=== PATIENT | female | born 1950 | race Two or more races ===

== ENCOUNTER 2024-03-20 09:27 | Emergency (ER) | payer MEDICARE, MEDICAID, SELFPAY ==
[2024-03-20 09:39] VITALS: BP 150/85; PULSE 81; RESP 19; TEMP 37; O2SAT 95; BMI 27.1
--- NOTE | 2024-03-20 09:55 | XR_ITS ---
EXAMINATION: Ankle, left 3 views . Technique: Ankle AP, oblique, lateral 3 views Date and time of exam: March 20, 2024 at 1002 hours Indications: Left ankle swelling and pain beginning 3 days ago no trauma IMPRESSION: Moderate osteopenia Moderate narrowing tibiotalar joint 10 mm plantar 12 mm posterior bony calcaneal spurs Ossification in the plantar fascia IMPRESSION: Plantar posterior bony calcaneal spurs as above Ossification in the plantar fascia
--- NOTE | 2024-03-20 09:55 | XR_ITS ---
Examination: Duplex scan of the lower extremity, unilateral left complete Exam date and time: 03/20/2024 1102 hours INDICATIONS: Left leg pain beginning 3 days ago Technique: Duplex scan of the extremity veins using B-mode/grayscale imaging and Doppler spectral analysis and color flow Attention is directed to internal echogenicity, compression and augmentation involving these veins, color flow assessment, spectral analysis Findings: Major deep venous structures in the extremity demonstrate normal course and caliber. There is no evidence of deep vein thrombosis. Normal color flow and spectral analysis Impression: Negative for DVT..
--- NOTE | 2024-03-20 12:33 | EDNOTE_ITS ---
ED General RME/HPI General Chief complaint: Extremity Injury, Lower Stated complaint: BP HIGH 163/87, PAIN LLE UP TO KNEE Time Seen by Provider: 03/20/24 09:30 Arrival date/time: 03/20/24 09:27 73-year-old female presents the emergency department today stating her blood pressure was high and she was concerned perhaps that was causing an issue with her left foot patient reports no fever nausea or vomiting no weakness no headache Limitations: no limitations Related Data Home Medications ?Medication ?Instructions ?Recorded ?Confirmed lisinopril 20 mg tablet 20 mg PO BID 03/26/18 09/21/23 clonazepam 2 mg tablet 2 mg PO HS PRN Insomnia 01/01/23 09/21/23 fexofenadine-pseudoephedrine ER 1 tab PO QAM 01/01/23 09/21/23 180 mg-240 mg tablet,ext.release 24 hr Previous Rx's ?Medication ?Instructions ?Recorded docusate sodium 100 mg capsule 100 mg PO Q8HR PRN constipation 09/05/23 (Colace) #20 caps hydrocodone 5 mg-acetaminophen 325 1 tab PO Q8H PRN pain #20 tabs 09/05/23 mg tablet Allergies Allergy/AdvReac Type Severity Reaction Status Date / Time No Known Allergies Allergy Verified 03/20/24 12:51 Review of Systems Review of Systems Systems Reviewed: All systems reviewed, normal except as documented Constitutional Constitutional: Reports system reviewed and no additional complaints, except as documented, Denies fever(s) and Denies headache(s) Eyes Eyes: Reports system reviewed and no additional complaints, except as documented and Denies blurry vision ENT Ears, Nose, Mouth, and Throat: Reports system reviewed and no additional complaints, except as documented, Denies headache(s), Denies nasal congestion and Denies nasal discharge Cardiovascular Cardiovascular: Reports system reviewed and no additional complaints, except as documented, Denies chest pain and Denies dyspnea Respiratory Respiratory: Reports system reviewed and no additional complaints, except as documented, Denies chest congestion, Denies cough and Denies dyspnea Gastrointestinal Gastrointestinal: Reports system reviewed and no additional complaints, except as documented and Denies abdominal pain Musculoskeletal Musculoskeletal: Reports system reviewed and no additional complaints, except as documented, Reports arthralgias, Denies joint swelling, Denies numbness, Reports stiffness and Denies tingling Integumentary/Breasts Skin/Breast: Reports system reviewed and no additional complaints, except as documented and Denies rash Neurologic Neurologic: Reports system reviewed and no additional complaints, except as documented, Reports as per HPI, Denies headache(s), Denies numbness and Denies tingling Past Medical History Past Medical History NEUROLOGIC: Positive Neurological Disorders and Migraine; Negative Seizures CARDIAC: Positive Cardiac Disorders, Hypertension and Hypotension; Negative Congestive Heart Failure RESPIRATORY: Positive Pneumonia; Negative Chronic Obstructive Pulmonary Disease (COPD) or Asthma GASTROINTESTINAL: Positive Gastrointestinal Disorders, Diverticulitis and Ulcer GENITOURINARY: Positive Genitourinary Disorders (UTI'S); Negative Renal Disease MUSCULOSKELETAL: Positive Musculoskeletal Disorders (LEFT FOOT PAIN) ENDOCRINE: Negative Diabetes Mellitus Type 1 or Diabetes Mellitus Type 2 (PRE) HEMATOLOGIC: Negative Sickle Cell Disease PSYCHO/SOCIAL: Positive Depression and Anxiety OTHER HISTORY: Positive Chicken Pox, Measles and Mumps; Negative Blood Transfusions, Blood Transfusion Reaction, Anesthesia Reactions or Cancer Family History FAMILY HISTORY: Positive Family Cancer (FATHER - COLON CA); Negative Family Cardiac Disorders Social History SMOKING STATUS: Never smoker SUBSTANCE USE: does not use ED Exam General Limitations: Present no limitations General appearance: Present alert and in no apparent distress Head Head exam: Present atraumatic Eye Eye exam: Present normal appearance, PERRL and EOMI ENT ENT exam: Present normal exam, normal oropharynx and mucous membranes moist Neck Neck exam: Present normal inspection, full ROM and trachea midline Chest Chest inspection: Present normal inspection and symmetric chest wall rise Respiratory Respiratory exam: Present normal lung sounds bilaterally Cardiovascular Cardiovascular exam: Present regular rate, normal rhythm and normal heart sounds Abdominal Exam Abdominal exam: Present soft and normal bowel sounds Extremities Exam Extremities exam: Present normal inspection, full ROM, tenderness (Left ankle pain) and normal capillary refill; Absent pedal edema, joint swelling or calf tenderness Back Exam Back exam: Present normal inspection and full ROM Neurological Exam Neurological exam: Present alert, oriented X3 and CN II-XII intact Psychiatric Psychiatric exam: Present normal affect and normal mood Skin Skin exam: Present warm, dry, intact and normal color Course Quality Measures none Orders Category Date Time Status US venous doppler LE LT Stat Exams 03/20/24 09:55 Completed XR ankle comp LT min 3V Stat Exams 03/20/24 09:55 Completed Vital Signs Vital signs: Vital Signs Temperature 98.6 F 03/20/24 09:39 Pulse Rate 81 03/20/24 09:39 Respiratory Rate 19 11/18/24 09:39 Blood Pressure 150/85 H 03/20/24 09:39 Pulse Oximetry (%) 95 03/20/24 09:39 Oxygen Delivery Method Room Air 03/20/24 09:39 O2 saturation 95% room air within normal limits MDM Patient data External records reviewed:: [facility] previous records Clinical information provided by:: patient Social determinants that could affect healthcare access:: none Patient has the following chronic illnesses:: Hypertension How is presenting disease/condition affected by chronic disease/condition?: uneffected by Evaluation data The following diagnostics were reviewed and interpreted by me:: radiology exam (s) Lab and/or radiology exams considered but not ordered:: Radiology obtained Interpretation Summary: Reviewed by me Medications Medications considered but not ordered:: Given no meds Medication administrations:: Given no meds Consultations Consultation(s) initiated? (list below): No Diagnosis Differential Diagnosis ED Complaint MDM: Foot sprain, foot fracture, DVT Most likely diagnosis given after review of the tests above:: Foot sprain Admission Indicated Admission indicated?: not indicated Explain why admission is indicated or not indicated:: No criteria Admission Request Was there a request for admission?: No Disposition Plan Disposition Plan: Discharge Discharge Attestation Discharge Attestation: The patient and all family members were given an opportunity to ask questions and understood the discharge instructions. Discharge instructions specifically effects, indications for sooner follow up or return to the emergency department, and the expected course of current diagnosis. Patient condition: Stable Medical Decision Making MDM Narrative MDM Narrative: 73-year-old female presents the emergency department today stating her blood pressure was high and she was concerned perhaps that was causing an issue with her left foot patient reports no fever nausea or vomiting no weakness no headache On exam patient points to the medial aspect of the left foot and states there is some swelling I really do not appreciate any significant swelling of any kind no bruising no deformity no redness or warmth Patient discharged home in no distress to follow-up with primary care doctor in the next 24 to 48 hours and for any worsening symptoms to return to the ER immediately Differential Diagnosis Differential Diagnosis: Foot sprain, foot fracture, DVT Medical Records Medical records reviewed: Yes I reviewed the patient's medical records. Radiology Data Radiology results reviewed: Yes I reviewed the patient's radiology results. Discharge Plan Plan Patient Disposition: HOME (Self Care) Disposition Comment: Stable Prescriptions/Referrals Prescriptions/Med Rec: No Action lisinopril 20 mg Tablet 20 mg PO BID clonazepam 2 mg Tablet 2 mg PO HS PRN (Reason: Insomnia) Hold Instructions: Resume on 01/02/23. MAY RESUME IN 24 HOURS fexofenadine-pseudoephedrine 180-240 mg Tablet Extended Release 24 Hr 1 tab PO QAM hydrocodone-acetaminophen 5-325 mg tablet 1 tab PO Q8H MDD 3 tabs/day PRN (Reason: pain) Qty: 20 0RF docusate sodium [Colace] 100 mg capsule 100 mg PO Q8HR PRN (Reason: constipation) Qty: 20 0RF Rx Instructions: Please take Colace if you require taking the prescription pain medicines. Referrals: Araceli Tompkins FNP [Primary Care Provider] - In 1 week Problem List Clinical Impression: Ankle pain, left Patient/Caregiver Discharge Instructions Education Materials: Medicine for Pain Additional Instructions: Please follow up with your primary care doctor in the next 24-48hrs for any worsening symptoms return here immediately Print Language: Khmer Stand Alone Forms: Sandy Award Info., Patient Portal Info Letter MD Attestation Attestation The patient was seen by the midlevel practitioner. I, the co-signing physician, was present during the entire ER visit. While I did not physically examine the patient, I was available for consultation as needed.
== END 2024-03-20 12:55 | disposition home or self-care (01) ==
PROVIDERS: Emergency Provider Emergency Medicine; PCP Registered Nurse Community Health
DX: M25.572 Pain in left ankle and joints of left foot (principal); M79.605 Pain in left leg
CPT/HCPCS: 73610; 93971; 99284

== ENCOUNTER → 2024-03-27 | Outpatient (CLI) | payer MEDICARE, MEDICAID, SELFPAY ==
--- NOTE | 2024-03-27 12:30 | XR_ITS ---
Examination: Bone scan whole body, radioisotope Date and time of exam: March 27, 2024 1238 hours INDICATIONS: Brain MRI March 01, 2024 subtle abnormal enhancement in the right frontal bone inner table Technique: Study has been performed with intravenous administration of 24 mci 99M technetium MDP. Anterior, posterior whole body images are obtained. Images have been obtained including the lower extremities. Findings: No convincing focal abnormal osseous uptake in the cranial vault Subtle asymmetric uptake left anterior lower rib which may be secondary to rotation IMPRESSION: No convincing focal abnormal osseous uptake in the cranial vault Subtle uptake left lower anterior rib, recommend left rib series follow-up
== END | disposition home or self-care (01) ==
LOC: SNUC 08:18
PROVIDERS: PCP Registered Nurse Community Health; Referring Provider Specialist; Visit Provider Specialist
DX: R94.02 Abnormal brain scan (principal)
CPT/HCPCS: 78306; A9503

== ENCOUNTER → 2024-05-01 | Outpatient (CLI) | payer MEDICARE, MEDICAID, SELFPAY ==
--- NOTE | 2024-05-01 09:00 | XR_ITS ---
Examination: Bone densitometry Date and time of exam:May 01, 2024 0851 hours INDICATIONS: Menopause age 50, personal history osteopenia Technique: Lumbar spine and hip total bone mineralization values of an calculated. Peak reference and age match control results have been displayed. Findings: Lumbar spine total bone mineralization is0.850 gm/cm2. This is 1.8 standard deviations below peak reference. This is 0.5 standard deviations above age-matched controls. Hip total bone mineralization is 0.780 gm/cm2 This is 1.4 standard deviations below peak reference. This is 0.3 standard deviations above age-matched controls Impression: There is osteopenia based on lumbar spine measurements. There is osteopenia based on hip measurements Lumbar mineralization is increased 6.5% compared with February 23, 2017 Hip mineralization is increased 9.8% compared with February 23, 2017
== END | disposition home or self-care (01) ==
LOC: CDIM 08:36
PROVIDERS: Referring Provider Registered Nurse Community Health; Visit Provider Registered Nurse Community Health
DX: M85.89 Other specified disorders of bone density and structure, multiple sites (principal)
CPT/HCPCS: 77080

== ENCOUNTER → 2024-07-28 | Outpatient (CLI) | payer MEDICARE, MEDICAID, SELFPAY ==
--- NOTE | 2024-07-28 12:00 | XR_ITS ---
Examination: MRI cervical spine without intravenous contrast Date and time of exam: July 28, 2024 at 1233 hours INDICATIONS: Neck pain radiating to the back 3 years Technique: Multiple axial and sagittal sections of the cervical spine to been obtained. T2 weighted sagittal sections, TR 3, 270, TE 117 T1-weighted sagittal sections, TR 500, TE 11 T1-weighted axial sections, TR 607, TE 12, axial sections TR 18, TE 27 and T2 weighted transverse sections, TR 3920, TE 122. Findings: Adequate alignment cervical vertebral bodies No cervical fracture. Intact odontoid. Mild disc narrowing C3-C4, C4-C5, C5-C6 Diffuse cervical disc desiccation No localized enlargement cervical cord C2-C3 no disc protrusion C3-C4 3 mm left paracentral disc protrusion C4-C5 2 mm central subarticular osteophyte disc complex C5-C6 3 mm right paracentral disc bulge C6-C7 moderate bilateral neural foraminal stenosis C7-T1 no disc protrusion IMPRESSION: C3-C4 3 mm left paracentral disc protrusion C5-C6 3 mm right paracentral disc bulge C6-C7 moderate bilateral neural foraminal stenosis
== END | disposition home or self-care (01) ==
LOC: SMRI 12:03
PROVIDERS: PCP Registered Nurse Community Health; Referring Provider Physical Medicine & Rehabilitation Sports Medicine; Visit Provider Physical Medicine & Rehabilitation Sports Medicine
DX: M50.21 Other cervical disc displacement, high cervical region (principal); M48.02 Spinal stenosis, cervical region
CPT/HCPCS: 72141

== ENCOUNTER 2024-10-24 10:58 | Outpatient (AMB) | payer MEDICARE, MEDICAID, SELFPAY ==
--- NOTE | 2024-10-24 11:13 | GYNCLNT_ITS ---
Vital Signs 10/24/24 11:15 Height 1.55 m Height Method Stated Weight 68.209 kg Weight Measurement Method Standing Scale BMI 28.3 BP 119/67 Blood Pressure Source Automatic Cuff Blood Pressure Location Left Upper Arm Position Supine Respiration 18 Pulse 69 Pulse Source Monitor Temp 97.2 F Temp Source Oral Pulse Oximetry (%) 96 Oxygen Delivery Method Room Air Allergies/Home Meds Allergies & Medications Allergies No Known Allergies Allergy (Verified 10/24/24 11:16) Medication Reconciliation lisinopril 20 mg tablet 20 mg PO BID 03/26/18 [History Confirmed 10/24/24] clonazepam 2 mg tablet 2 mg PO HS PRN Insomnia 01/01/23 [History Confirmed 10/24/24] Held on 01/01/23. Instructions: Resume on 01/02/23. MAY RESUME IN 24 HOURS fexofenadine-pseudoephedrine ER 180 mg-240 mg tablet,ext.release 24 hr 1 tab PO QAM 01/01/23 [History Confirmed 10/24/24] docusate sodium 100 mg capsule (Colace) 100 mg PO Q8HR PRN constipation #20 caps 09/05/23 [Rx Confirmed 10/24/24] hydrocodone 5 mg-acetaminophen 325 mg tablet 1 tab PO Q8H PRN pain #20 tabs 09/05/23 [Rx Confirmed 10/24/24] Intake Visit Data Collection New Patient or Established: Established Patient (seen at [facility] within 3 years) Reason for Visit:: PROLAPSE Seen by Clinical Staff ONLY (RN/MA): No Senior Vice President And Chief Information Officer Required: No Do You Feel Safe at Home: Yes Authorities Contacted: N/A PCP or OBGYN visit in last 3 months: Yes Hx Now: No Are you currently on any form of Control: No Pain Present Currently: No Pain Scale Used: Em-Bains/Numerical Pain scale:: 0 Smoking Status Smoking Status: Never smoker Occupational Safety And Health Manager history Occupational Safety And Health Manager History Menstrual regularity: irregular Monthly: No Age at menarche: 16 Menopausal: Yes Currently sexually active: No If not currently sexually active, have you ever been sexually active: No CREDIT CONTROL OFFICER: Past Medical History Past Medical History: Yes Hx Neurological Disorders, Yes Hx Cardiac Disorders, Yes Hx Hypertension, No Hx Cancer, Yes Hx Gastrointestinal Disorders, No Hx Renal Disease, No Hx Diabetes Mellitus Type 1 and No Hx Diabetes Mellitus Type 2 (PRE) Questionnaires Covid-19 Vaccine Questionnaire Has patient been vacinated for Covid-19 Have you been vacinated for Covid-19: Yes PHQ-9 PHQ-2 Over the last 2 weeks, how often have you been bothered by any of the following problems? 1. Little interest or pleasure in doing things: not at all 2. Feeling down, depressed, or hopeless: not at all Total score: 0 PHQ-9 3. Trouble falling or staying asleep, or sleeping too much: Not at all 4. Feeling tired or having little energy: Not at all 5. Poor appetite or overeating: Not at all 6. Feeling bad about yourself - or that you are a failure or have let yourself or your family down: Not at all 7. Trouble concentrating on things, such as reading the newspaper or watching television: Not at all 8. Moving or speaking so slowly that other people could have noticed? - Or the opposite - being so fidgety or restless that you have been moving around a lot more than usual: not at all 9. Thoughts that you would be better off or of hurting yourself in some way: Not at all Total score: 0 If you checked off any problems, how difficult have these problems made it for you to do your work, take care of things at home, or get along with other people?: not difficult at all Source: Developed by Drs. Heath Berrios, Latonia Hammond, Andrés Bean and colleagues, with an educational jorge from [employer]. Depression screen completed yes Social History Living Situation History Marital Status: Lives With: Family Housing: House Tobacco History Smoking Status: Never smoker Second Hand Smoke Exposure: No Alcohol History Alcohol Intake: Never Domestic Abuse History Do You Feel Safe at Home: Yes History of Present Illness HPI Narrative Sulma Renae, a 73-year-old female, presents for evaluation of uterine prolapse and urinary incontinence. The patient reports experiencing urinary incontinence for approximately 5 years, with symptoms worsening after a fall 3 years ago. She describes leakage of urine upon standing after using the restroom and when sneezing. The patient's daughter, who is translating, also notes that the incontinence occurs while the patient is working. The patient's urinary symptoms have been constant for more than one year. She experiences urgency and difficulty holding urine, suggesting urge incontinence. The incontinence impacts her daily activities, particularly during work and when performing actions that increase intra-abdominal pressure, such as sneezing. Mrs. Renae has a significant obstetric history, having given to 14 children, all through normal vaginal deliveries. She also reports a history of gallbladder surgery in [place] approximately 33 years ago, which coincided with a . The patient is noted to be pre-diabetic, but does not have diabetes. Obstetric History - GTPAL: G14 T14 L14 - history: - 14 children, all delivered via normal vaginal births Medical History - Pre-diabetes Surgical History - Cholecystectomy (gallbladder removal) in [place] approximately 33 years ago Social History - Children: Patient has 14 children - Obstetric History: All births were normal deliveries Review of Systems Genitourinary: Positive for urinary incontinence, specifically urge incontinence. Patient reports leaking urine after urinating and getting up, as well as when sneezing. Exam Narrative Physical exam: Gynecological: No uterine prolapse observed. No bladder prolapse noted. Patient able to cough on command during examination. General General Appearance: alert, in no apparent distress and healthy appearing Head Head exam: atraumatic Neck Neck exam: Present normal inspection and trachea midline Chest Chest inspection: Present normal inspection and symmetric chest wall rise External exam: Present normal external exam; Absent tenderness Neuro Neurological exam: Present oriented X3 Psych Psychiatric exam: Present normal affect and normal mood Office Procedures OB Clinic LOC & Office Proc's Nursing/Assessment Patient Status: Established Patient OB Clinic Nursing Assessment: Medication Reconciliation, Update PMH in EMR and Vital Signs OB Clinic Coordination of Care: Education Complex Pt/Fam, Consent,records obtained, informed consent, Lab and Imaging orders and Staff clarify orders Special Needs: Heart tones Established Patient Charge Established Patient Point Assignment: 110 Established Patient Point Charge: EP Level 3 (80-115) Assessment & Plan Diagnosis / Problem List (1) Pelvic and perineal pain: Status: Acute (2) Mixed incontinence urge and stress: Status: Acute Plan Sulma Renae, a 73-year-old female with a history of 14 normal births and cholecystectomy, presents with urinary incontinence and suspected uterine prolapse for over 3 years, worsening after a fall. Urinary Incontinence Assessment: Patient presents with symptoms consistent with urge incontinence. She reports leakage of urine upon standing after urination and with sneezing. Symptoms have been present for over 3 years, with worsening noted after a fall. Physical examination revealed no evidence of uterine or bladder prolapse. Given the patient's history of 14 normal births, her pelvic floor muscles may be weakened, contributing to the incontinence. Plan: - Refer to urologist Dr. Childers in [place] for further evaluation and potential surgical intervention - Urologist to perform cystoscopy and additional studies prior to considering outpatient surgical procedure - Recommend Kegel exercises: patient instructed to interrupt urination midstream, hold for 5 seconds, release, and repeat 2-3 times daily - Order pelvic ultrasound to evaluate pelvic structures prior to potential surgery - Advise patient to schedule appointment with primary care physician Dr. Dayanara zavala at [facility] for pre-operative evaluation and medication adjustment if needed - Follow up with urology after their evaluation and intervention Suspected Uterine Prolapse Assessment: Patient initially presented with concerns of uterine prolapse. However, upon physical examination, no evidence of uterine or bladder prolapse was found. The patient's symptoms are more consistent with urinary incontinence rather than prolapse. Plan: - No specific intervention required for uterine prolapse at this time as examination was negative - Continue to monitor for any changes in symptoms or development of prolapse Advanced Care Planning Advance care planning discussed with:: child
[2024-10-24 11:15] VITALS: BP 119/67; PULSE 69; RESP 18; TEMP 36.2; O2SAT 96; BMI 28.3
== END 2024-10-24 11:45 | disposition home or self-care (01) ==
LOC: HODSOBC 10:58
PROVIDERS: PCP Registered Nurse Community Health; Referring Provider Registered Nurse Community Health; Supervising Provider Obstetrics & Gynecology; Visit Provider Obstetrics & Gynecology
DX: N39.46 Mixed incontinence (principal); R10.2 Pelvic and perineal pain; I10 Essential (primary) hypertension; Z90.49 Acquired absence of other specified parts of digestive tract; Z79.899 Other long term (current) drug therapy
CPT/HCPCS: 99213; G0463

== ENCOUNTER → 2024-11-24 | Outpatient (CLI) | payer MEDICARE, MEDICAID, SELFPAY ==
--- NOTE | 2024-11-24 11:30 | XR_ITS ---
Examination: Pelvic ultrasound, transabdominal, complete Technique: Transabdominal ultrasound of the pelvis performed using grayscale imaging Date and time of exam: November 24, 2024 1135 hours INDICATIONS: Right lower abdomen pain and bladder incontinence 1 year after falling FINDINGS: Uterus 5.5 cm endometrial stripe 0.8 cm Ovaries obscured by bowel gas IMPRESSION: Limited study No uterine mass
== END | disposition home or self-care (01) ==
PROVIDERS: PCP Registered Nurse Community Health; Referring Provider Obstetrics & Gynecology; Visit Provider Obstetrics & Gynecology
DX: R10.2 Pelvic and perineal pain (principal); N39.46 Mixed incontinence
CPT/HCPCS: 76856

== ENCOUNTER → 2024-12-08 | Outpatient (CLI) | payer MEDICARE, MEDICAID, SELFPAY ==
--- NOTE | 2024-12-08 07:00 | XR_ITS ---
Examination: MRI lumbar spine without contrast Date and time of exam: December 18, 2024 0713 hours INDICATIONS: Lower back pain radiating down both legs after falling one year ago TECHNIQUE: Multiple axial MRI sagittal MRI images lumbar spine FINDINGS: Satisfactory alignment lumbar vertebral bodies No lumbar fracture Diffuse lumbar disc desiccation No spondylolisthesis Mild disc narrowing L4-L5, L5-S1 L5-S1 5 mm central lumbar disc bulge L4-L5 6 mm right paracentral disc bulge displacing the right L5 nerve root L3-L4 3 mm central lumbar disc bulge L2-L3 no disc protrusion L1-L2 no disc protrusion Impression: L5-S1 5 mm central lumbar disc bulge L4-L5 6 mm right paracentral disc bulge displacing the right L5 V nerve root
== END | disposition home or self-care (01) ==
LOC: SMRI 06:54
PROVIDERS: PCP Registered Nurse Community Health; Referring Provider Physical Medicine & Rehabilitation Sports Medicine; Visit Provider Physical Medicine & Rehabilitation Sports Medicine
DX: M51.370 Other intervertebral disc degeneration, lumbosacral region with discogenic back pain only (principal); M51.360 Other intervertebral disc degeneration, lumbar region with discogenic back pain only
CPT/HCPCS: 72148

== ENCOUNTER 2024-12-22 10:29 | Outpatient (AMB) | payer MEDICARE, MEDICAID, SELFPAY ==
--- NOTE | 2024-12-22 10:57 | GYNCLNT_ITS ---
Vital Signs 12/22/24 11:02 Height 1.55 m Height Method Stated Weight 67.302 kg Weight Measurement Method Standing Scale BMI 28.0 BP 108/68 Blood Pressure Source Automatic Cuff Blood Pressure Location Left Upper Arm Position Sitting Respiration 14 Pulse 63 Pulse Source Monitor Temp 97.5 F Temp Source Oral Pulse Oximetry (%) 96 Oxygen Delivery Method Room Air Allergies/Home Meds Allergies & Medications Allergies No Known Allergies Allergy (Verified 12/22/24 11:03) Medication Reconciliation lisinopril 20 mg tablet 20 mg PO BID 03/26/18 [History Confirmed 12/22/24] clonazepam 2 mg tablet 2 mg PO HS PRN Insomnia 01/01/23 [History Confirmed 12/22/24] Held on 01/01/23. Instructions: Resume on 01/02/23. 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 Do You Feel Safe at Home: Yes Authorities Contacted: N/A PCP or OBGYN visit in last 3 months: Yes Hx Now: No Are you currently on any form of Control: No Pain Present Currently: Yes Pain Location: Abdomen Pain Scale Used: Em-Bains/Numerical Pain scale:: 5 Smoking Status Smoking Status: Never smoker 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[employer] Worker History Menopausal: Yes If menopausal, at what age did it occur: 56 Currently sexually active: No If not currently sexually active, have you ever been sexually active: Yes PRODUCTION CLERKS SUPERVISOR: Past Medical History Past Medical History: Yes Hx Neurological Disorders, Yes Hx Cardiac Disorders, Yes Hx Hypertension, No Hx Cancer, Yes Hx Gastrointestinal Disorders, No Hx Renal Disease, No Hx Diabetes Mellitus Type 1 and No Hx Diabetes Mellitus Type 2 (PRE) Questionnaires Covid-19 Vaccine Questionnaire Has patient been vacinated for Covid-19 Have you been vacinated for Covid-19: Yes PHQ-9 PHQ-2 Over the last 2 weeks, how often have you been bothered by any of the following problems? 1. Little interest or pleasure in doing things: not at all 2. Feeling down, depressed, or hopeless: not at all Total score: 0 PHQ-9 3. Trouble falling or staying asleep, or sleeping too much: Not at all 4. Feeling tired or having little energy: Not at all 5. Poor appetite or overeating: Not at all 6. Feeling bad about yourself - or that you are a failure or have let yourself or your family down: Not at all 7. Trouble concentrating on things, such as reading the newspaper or watching television: Not at all 8. Moving or speaking so slowly that other people could have noticed? - Or the opposite - being so fidgety or restless that you have been moving around a lot more than usual: not at all 9. Thoughts that you would be better off or of hurting yourself in some way: Not at all Total score: 0 Source: Developed by Drs. Heath Berrios, Latonia Hammond, nAdrés Bean and colleagues, with an educational jorge from [employer]. Depression screen completed yes Social History Living Situation History Lives With: Family Housing: House Tobacco History Smoking Status: Never smoker Second Hand Smoke Exposure: No Alcohol History Alcohol Intake: Never Domestic Abuse History Do You Feel Safe at Home: Yes History of Present Illness HPI Narrative Sulma Renae presents for follow-up of mixed/urge incontinence, last seen one year ago for this issue. Since her last visit, she was referred to a urologist f or evaluation and potential surgical intervention for her incontinence. She was recommended Kegel exercises and pelvic floor exercises, which she has been performing. She reports attending therapy sessions where she received assistance with these exercises. She acknowledges that while the exercises have been helpful, they have not completely resolved her symptoms. She has a history of 14 normal vaginal deliveries. The patient continues to be under the care of Dr. Tompkins at [facility] for her primary care needs. She is a 73-year-old female with an obstetric history of A0 L14. The patient has 14 children, all delivered via normal vaginal . ROS: Genitourinary: Positive for mixed urge incontinence. Exam General General Appearance: alert, in no apparent distress and healthy appearing Head Head exam: atraumatic Neck Neck exam: Present normal inspection and trachea midline Chest Chest inspection: Present normal inspection and symmetric chest wall rise External exam: Present normal external exam; Absent tenderness Neuro Neurological exam: Present oriented X3 Psych Psychiatric exam: Present normal affect and normal mood Office Procedures OB Clinic LOC & Office Proc's Nursing/Assessment Patient Status: Established Patient OB Clinic Nursing Assessment: Medication Reconciliation, Update PMH in EMR and Vital Signs OB Clinic Coordination of Care: Complex Care and Chronic Disease 1-5, Consent,records obtained, informed consent, Education Simp Pt/Fam, Lab and Imaging orders, Results/Orders obtained and Staff clarify orders Established Patient Charge Established Patient Point Assignment: 105 Established Patient Point Charge: EP Level 3 (80-115) Assessment & Plan Diagnosis / Problem List (1) Pelvic and perineal pain: Status: Acute (2) Mixed incontinence urge and stress: Status: Acute Plan Mixed/Urge Urinary Incontinence: - 73-year-old female with history of 14 normal vaginal deliveries presenting for follow-up. - Previously evaluated and referred to urologist for potential surgical interven tion. - Patient performing Kegel exercises and pelvic floor exercises as recommended. - Pelvic ultrasound completed November 24, 2024 showing small postmenopausal uterus (5.5 cm), normal endometrial stripe (0.8 cm), no uterine masses, ovaries obscured by bowel gas. Plan: - Continue Kegel exercises and pelvic floor exercises as previously recommended. - Follow up with urologist Dr. Childers for further evaluation and potential surgical intervention. - Provided patient with copy of pelvic ultrasound report for urologist appointment. - Urologist may consider simple bladder lift procedure (15-minute outpatient procedure) for symptom relief. Additional Assessment Diagnostic Test Results and Labs: - Pelvic ultrasound (11/24/2024): Uterus 5.5 cm, endometrial stripe 0.8 cm, ovaries obscured by bowel gas, limited study, no uterine mass Advanced Care Planning Advance care planning discussed with:: patient
[2024-12-22 11:02] VITALS: BP 108/68; PULSE 63; RESP 14; TEMP 36.4; O2SAT 96; BMI 28.0
== END 2024-12-22 11:33 | disposition home or self-care (01) ==
LOC: HODSOBC 10:29
PROVIDERS: PCP Registered Nurse Community Health; Referring Provider Registered Nurse Community Health; Supervising Provider Obstetrics & Gynecology; Visit Provider Obstetrics & Gynecology
DX: N39.46 Mixed incontinence (principal); R10.2 Pelvic and perineal pain; I10 Essential (primary) hypertension; Z79.899 Other long term (current) drug therapy
CPT/HCPCS: 99213; G0463

== ENCOUNTER 2025-01-15 12:07 | Emergency (ER) | payer MEDICARE, MEDICAID, SELFPAY ==
[2025-01-15 12:08] VITALS: BMI 28.3
--- NOTE | 2025-01-15 12:11 | EKG_ITS ---
[facility] Test Date: 2025-01-15 Pat Name: BIRD BAIRD Department: Room: - Gender: Female Resident Care Provider: : 1950 Requested By: ED Temporary Provider Order Number: [id number] Reading MD: ED Temporary Provider Measurements Intervals [place] Rate: 67 P: 35 IA: 146 QRS: -14 QRSD: 82 T: 38 QT: 376 QTc: 398 Interpretive Statements SINUS RHYTHM Compared to ECG 07/17/2018 01:46:52 No significant changes /store/S0/[id number].pdf
[2025-01-15 12:36] VITALS: BP 123/71; PULSE 64; RESP 17; TEMP 36.8; O2SAT 96
--- NOTE | 2025-01-15 12:40 | XR_ITS ---
Examination: PA lateral chest 2 views TECHNIQUE: Upright PA lateral chest 2 views Date and time: January 15, 2025 1254 hours INDICATIONS: Chest pain beginning 2 days ago. FINDINGS: Comparison December 14, 2023 Normal heart size Increased AP dimension chest No pneumonia or pulmonary edema Moderate diffuse thoracic degenerative disc disease IMPRESSION: COPD with moderate hyperexpansion No pneumonia or pulmonary edema
--- NOTE | 2025-01-15 12:40 | PD.EDRME ---
Rapid Medical Screening Exam RME Arrival date/time: 01/15/25 12:07 74-year-old female with a history of hypertension and COPD presents to the emergency room with a chief complaint of right sided sternal chest pain that radiates to the thoracic area of her spine x 1 week I have greeted and performed a focused initial assessment of this patient. A comprehensive ED assessment and evaluation of the patient, analysis of all test results, and completion of the medical decision making process will be conducted by additional ED providers. Chief Complaint: Back Pain/Injury Time Seen by Provider: 01/15/25 12:22 Vital signs: Vital Signs Temperature 98.2 F 01/15/25 12:36 Pulse Rate 64 01/15/25 12:36 Respiratory Rate 17 01/15/25 12:36 Blood Pressure 123/71 01/15/25 12:36 Pulse Oximetry (%) 96 01/15/25 12:36 Oxygen Delivery Method Room Air 01/15/25 12:36 Vital signs reviewed by provider: Yes
[2025-01-15 13:46] LABS: Collection Type, Urine Clean Catch
[2025-01-15 13:57] LABS: Basophils # (Auto) 0.1 Thou/mm3 (0.0-0.2); Basophils % (Auto) 1 % (0-2.5); Eosinophils # (Auto) 0.1 Thou/mm3 (0.0-0.5); Eosinophils % (Auto) 1 % (0-10); Hematocrit 42.2 % (36.0-46.0); Hemoglobin 14.1 g/dL (12.0-16.0); Immature Granulocytes Auto 0.04 Thou/mm3 (0.00-0.00); Lymphocytes # (Auto) 1.9 Thou/mm3 (1.0-4.8); Lymphocytes % (Auto) 26 % (10-50); Mean Corpuscular HGB Conc 33.4 g/dl (31.0-37.0); Mean Corpuscular Hemoglobin 30.4 pg (25.0-35.0); Mean Corpuscular Volume 91 fL (80-100); Monocytes # (Auto) 0.5 Thou/mm3 (0.0-0.8); Monocytes % (Auto) 7 % (0-12); Neutrophils # (Auto) 4.6 Thou/mm3 (1.8-7.7); Neutrophils % (Auto) 64 % (37-80); Nucleated Red Blood Cell # 0.00 Thou/mm3 (0.00-0.00); Nucleated Red Blood Cell % 0 /100 WBC (0); Platelet Count 236 Thou/mm3 (140-440); RDW Standard Deviation 41.8 fL (36.4-46.3); Red Blood Count 4.64 Miln/mm3 (4.00-5.20); White Blood Count 7.2 Thou/mm3 (3.6-11.0)
[2025-01-15 14:04] LABS: INR 1.0 (0.9-1.3); Partial Thromboplastin Time 24.5 Seconds (22.0-36.0); Prothrombin Time 10.9 Seconds (9.0-12.2)
[2025-01-15 14:05] LABS: B-Type Natriuretic Peptide 94 pg/mL (0-100)
[2025-01-15 14:08] LABS: Bacteria,Urine Rare; Bilirubin,Urine Negative (Negative); Blood,Urine Negative (Negative); Clarity,Urine Clear (Clear/Hazy); Color,Urine Yellow (Lt Yel-Yel); Culture Indicated,Urine Not Indicated; Glucose, Urine Negative (Negative); Ketones,Urine Negative (Negative); Leukocyte Esterase,Urine Positive (Negative); Nitrite,Urine Negative (Negative); PH,Urine 6.0 (5.0-7.0); Protein,Urine Trace (Neg - Trace); RBC,Urine 4 /hpf (0-3); Specific Gravity,Urine 1.027 (1.001-1.035); Squamous Epithelial Cell,Urine 1 /hpf (0-5); Urobilinogen,Urine Negative mg/dL (0.0-1.0); WBC,Urine 8 /hpf (0-5)
[2025-01-15 14:08] LABS: Alanine Aminotransferase 16 U/L (10-49); Albumin, Serum 4.5 gm/dL (3.4-4.8); Albumin/Globulin Ratio 1.9 (1.2-2.2); Alkaline Phosphatase 105 U/L (46-116); Anion Gap 10 (7-16); Aspartate Amino Transferase < 8 U/L (0-34); BUN/Creatinine Ratio 15 Ratio (12-20); Bilirubin,Total 0.4 mg/dL (0.3-1.2); Blood Urea Nitrogen 9 mg/dL (9-23); Calcium 9.9 mg/dL (8.3-10.6); Calcium (Corrected) 9.9 mg/dL (8.5-10.1); Carbon Dioxide 23.2 mMol/L (20.0-31.0); Chloride 108 mMol/L (98-107); Creatinine (Component) 0.6 mg/dL (0.6-1.3); Estimated Creatinine Clearance 75.6 mL/min (>60); Globulin 2.4 gm/dL (2.3-3.5); Glucose 108 mg/dL (74-106); Magnesium 2.0 mg/dL (1.6-2.6); Osmolality,Calculated 280 (275-295); Potassium 3.8 mMol/L (3.4-5.1); Sodium 141 mMol/L (136-145); Total Protein 6.9 gm/dL (5.7-8.2); Troponin I < 0.020 ng/mL (0.0-0.045); eGFR > 60 See Note
--- NOTE | 2025-01-15 16:12 | EDNOTE_ITS ---
<Statement entered by Milagro Plata MD - 01/15/25 17:41> As co-signing physician, I was present and available for consult prn. I concur with the plan and care as documented by the midlevel provider. ED General RME/HPI General Chief complaint: Back Pain/Injury Stated complaint: BACK PAIN RADIATING TO CHEST x 2 DAYS Time Seen by Provider: 01/15/25 12:22 Arrival date/time: 01/15/25 12:07 CC: Left upper mid back pain that radiates to the chest HPI ongoing for the past 8 days muscular erectors are not helping, denies lifting heavy motion patient is right-handed. Family member at bedside states she had minimal relief with heating pads. Patient denies shortness of breath or difficulty breathing. Insidious onset denies trauma or repetitive motion. RME / HPI RME / HPI narrative: 01/15/25 12:07 74-year-old female with a history of hypertension and COPD presents to the emergency room with a chief complaint of right sided sternal chest pain that radiates to the thoracic area of her spine x 1 week I have greeted and performed a focused initial assessment of this patient. A comprehensive ED assessment and evaluation of the patient, analysis of all test results, and completion of the medical decision making process will be conducted by additional ED providers. Related Data Home Medications ?Medication ?Instructions ?Recorded ?Confirmed lisinopril 20 mg tablet 20 mg PO BID 03/26/18 clonazepam 2 mg tablet 2 mg PO HS PRN Insomnia 05/2512/22/24 Held on 01/01/23. Instructions: Resume on 01/02/23. MAY RESUME IN 24 HOURS fexofenadine-pseudoephedrine ER 1 tab PO QAM 01/01/23 12/22/24 180 mg-240 mg tablet,ext.release 24 hr Previous Rx's ?Medication ?Instructions ?Recorded docusate sodium 100 mg capsule 100 mg PO Q8HR PRN cons tipation 09/05/23 (Colace) #20 caps hydrocodone 5 mg-acetaminophen 325 1 tab PO Q8H PRN pa in #20 tabs 09/05/23 mg tablet Allergies Allergy/AdvReac Type Severity Reaction Status Date / Time No Known Allergies Allergy Verified 01/15/25 12:10 Review of Systems Review of Systems Narrative Review of Systems: GEN: No fever, no chills, no weight loss EYES: No discharge, no visual changes, no pain HEENT: No ear pain, no congestion, no sore throat PULM: No shortness of breath, no cough, no congestion CV: No chest pain, no dyspnea on exertion, no palpitations GI: No nausea, no vomiting, no diarrhea, no pain, no constipation : No frequency, no urgency, no dysuria MUSC/SKEL: No joint pain, + back pain SKIN: No rash PSYCH: No hallucinations, no depression HEME/LYMPH: No easy bleeding or bruising tendencies NEURO: No weakness, no headache Past Medical History Past Medical History NEUROLOGIC: Positive Neurological Disorders and Migraine; Negative Seizures CARDIAC: Positive Cardiac Disorders, Hypertension and Hypotension; Negative Congestive Heart Failure RESPIRATORY: Positive Pneumonia; Negative Chronic Obstructive Pulmonary Disease (COPD) or Asthma GASTROINTESTINAL: Positive Gastrointestinal Disorders, Diverticulitis and Ulcer GENITOURINARY: Positive Genitourinary Disorders (UTI'S); Negative Renal Disease MUSCULOSKELETAL: Positive Musculoskeletal Disorders (LEFT FOOT PAIN) ENDOCRINE: Negative Diabetes Mellitus Type 1 or Diabetes Mellitus Type 2 (PRE) HEMATOLOGIC: Negative Sickle Cell Disease PSYCHO/SOCIAL: Positive Depression and Anxiety OTHER HISTORY: Positive Chicken Pox, Measles and Mumps; Negative Blood Transfusions, Blood Transfusion Reaction, Anesthesia Reactions or Cancer Family History FAMILY HISTORY: Positive Family Cancer (FATHER - COLON CA); Negative Family Cardiac Disorders Social History SMOKING STATUS: Never smoker SECOND HAND EXPOSURE: No SUBSTANCE USE: does not use ED Exam Narrative Physical exam: [General: Not in any acute distress Head normocephalic HEENT: Within acceptable limits Neck is supple nontender Chest equal chest rise nontender to palpation Respiratory: Clear to auscultation no wheezes crackles or rubs CV: Rate rhythm is regular no murmurs rubs or clicks Abdomen is distended secondary to body habitus soft nontender no masses positive bowel sounds all 4 quadrants Back: Left upper thoracic paraspinal tenderness to palpation with flinching. No significant rash no other pain anywhere else with palpation of the back. Skin: Intact no petechiae rash induration ulceration or crepitus Extremities: Moving all extremity against resistance cap refill less than 2 seconds neurosensory intact Neuro: Awake alert oriented x3 Glascow coma 15 no focal deficits] Course Quality Measures none Orders Category Date Time Status EKG (ED ONLY) *Do not use* NOW Care 01/15/25 12:11 Completed EKG (ED Only) Stat Exams 01/15/25 12:11 Draft XR chest 2V Stat Exams 01/15/25 12:40 Completed B-Type Natriuretic Peptide Stat Lab 01/15/25 13:24 Completed CBC Stat Lab 01/15/25 13:24 Completed Comprehensive Metabolic Panel Stat Lab 01/15/25 13:24 Completed Magnesium Stat Lab 01/15/25 13:24 Completed Partial Thromboplastin Time Stat Lab 01/15/25 13:24 Completed Prothrombin Time with INR Stat Lab 01/15/25 13:24 Completed Troponin I Stat Lab 01/15/25 13:24 Completed Urinalysis, C/S if Indicated Stat Lab 01/15/25 13:35 Completed Vital Signs Vital signs: Vital Signs Temperature 98.2 F 01/15/25 12:36 Pulse Rate 64 01/15/25 12:36 Respiratory Rate 17 01/15/25 12:36 Blood Pressure 123/71 01/15/25 12:36 Pulse Oximetry (%) 96 01/15/25 12:36 Oxygen Delivery Method Room Air 01/15/25 12:36 Discharge Plan Plan Patient Disposition: HOME (Self Care) Patient condition on transfer: Stable Prescriptions/Referrals Prescriptions/Med Rec: No Action lisinopril 20 mg Tablet 20 mg PO BID clonazepam 2 mg Tablet 2 mg PO HS PRN (Reason: Insomnia) fexofenadine-pseudoephedrine 180-240 mg Tablet Extended Release 24 Hr 1 tab PO QAM hydrocodone-acetaminophen 5-325 mg tablet 1 tab PO Q8H MDD 3 tabs/day PRN (Reason: pain) Qty: 20 0RF docusate sodium [Colace] 100 mg capsule 100 mg PO Q8HR PRN (Reason: constipation) Qty: 20 0RF Rx Instructions: Please take Colace if you require taking the prescription pain medicines. Referrals: Araceli Tompkins FNP [Primary Care Provider] - In 1 week Problem List Clinical Impression: Spasm of thoracic back muscle Patient/Caregiver Discharge Instructions Education Materials: Self Care Back Day, ED Muscle Spasm Additional Instructions: Use heat topical balm's for temporary pain relief if there is worsening of symptoms follow-up with your primary care doctor. Print Language: Nepali Stand Alone Forms: Sandy Award Info., Work/School Release, Patient Portal Info Letter GIL Supervising Physician GIL Supervising Physician: Justin Friedman ENP [facility] Clinical Information Provided by patient and family Medical Records Reviewed None Meds/Rx Considered, not Ordered None Chronic Illness/Social Conditions which may negatively complicate care or outcome(s)-explain: None or not applicable EKG EKG Interpretation narrative: EKG performed at 1247 shows a ventricular rate of 6 7 HI interval 146 QRS of 82 QTc of 391 normal sinus rhythm. Lab Interpretation Labs: interpreted by me Lab(s) interpretation(s): CBC shows no acute leukocytosis anemia thrombocytopenia Coags within acceptable limits CMP shows significant electrolyte imbalances other than a glucose of 108 no T. bili or transaminitis. Urine is unremarkable for UTI. Imaging Imaging interpretation: interpreted by me Provider imaging interpretation(s): Chest x-ray is negative for any acute finding. Medication Administration(s) none Diagnosis Differential diagnosis: ACS MD pneumonia Most likely dx, and/or detailed dx discussion: Upper back strain Dispositon Disposition: Discharge Home
== END 2025-01-15 16:18 | disposition home or self-care (01) ==
PROVIDERS: Nurse Practitioner Family; Emergency Provider Emergency Medicine; PCP Registered Nurse Community Health
DX: M62.830 Muscle spasm of back (principal); R07.2 Precordial pain; I10 Essential (primary) hypertension
CPT/HCPCS: 36415; 71046; 80053; 81001; 83735; 83880; 84484; 85025; 85610; 85730; 93005; 99283